=== PATIENT | male | born 1950 | race Caucasian/White ===

== ENCOUNTER 2018-01-17 15:49 | Emergency (ER) | payer OTHER | END 2018-01-17 18:08 | disposition home or self-care (01) | LOC: FTE 15:49 | DX: S09.90XA Unspecified injury of head, initial encounter (principal); E11.9 Type 2 diabetes mellitus without complications; R51 Headache; W18.39XA Other fall on same level, initial encounter; Y92.89 Other specified places as the place of occurrence of the external cause; Z87.891 Personal history of nicotine dependence | CPT/HCPCS: 70450; 72100; 72125; 99284-25 ==